=== PATIENT | male | born 1990 | race Caucasian/White ===

== ENCOUNTER 2021-12-18 20:36 | Emergency (ER) | payer BC, SELFPAY ==
[2021-12-18 20:48] VITALS: BP 123/64; PULSE 94; RESP 18; TEMP 36.7; O2SAT 97
--- NOTE | 2021-12-18 20:59 | PC.NURSE ---
Patient's mother Merary Buckley, her phone number is [phone]. Mother's boyfriend's is Anil, his phone number is [phone].
--- NOTE | 2021-12-18 21:04 | ED.PSYCH ---
HPI - Psych General Chief Complaint: Psychiatric Symptoms <Guillermo Jeong MD - Last Filed: 12/19/21 19:00> Stated Complaint: psych complaint <Guillermo Jeong MD - Last Filed: 12/19/21 19:00> Time Seen by Provider: 12/18/21 20:43 <Guillermo Jeong MD - Last Filed: 12/19/21 19:00> Source: patient and EMS <Guillermo Jeong MD - Last Filed: 12/19/21 19:00> History of Present Illness HPI Narrative: Patient presents for a well visit. Patient has a history of schizophrenia and bipolar he has not been on his meds for several months patient reports that his insurance does not cover it. He does live with his mom and they have noted him pacing around outside family reports he is stated suicidal intentions patient denies. <Guillermo Jeong MD - Last Filed: 12/19/21 19:00> Related Data Allergies/Adverse Reactions: Allergies Allergy/AdvReac Type Severity Reaction Status Date / Time No Known Allergies Allergy Verified 12/19/21 12:42 <Guillermo Jeong MD - Last Filed: 12/19/21 19:00> Review of Systems Review of Systems: CONSTITUTIONAL: Denies fever, chills, or sweats. EYES: Denies visual changes, redness, or discharge. ENT: Denies rhinorrhea, congestion, sore throat, or otalgia. CARDIOVASCULAR: Denies chest pain, palpitations, or edema. RESPIRATORY: Denies cough or dyspnea. GASTROINTESTINAL: Denies abdominal pain, nausea, vomiting, or diarrhea. GENITOURINARY: Denies dysuria or hematuria. SKIN: Denies rash or itching. MUSCULOSKELETAL: Denies back pain, joint pain, or myalgia. NEUROLOGIC: Denies headache, numbness, dizziness, or weakness. PSYCHIATRIC: Denies anxiety or depression. <Guillermo Jeong MD - Last Filed: 12/19/21 19:00> All systems reviewed & are unremarkable except as noted in HPI and below <Guillermo Jeong MD - Last Filed: 12/19/21 19:00> PMFSH Social History Social History: Social History Substance use type: amphetamines <Guillermo Jeong MD - Last Filed: 12/19/21 19:00> Exam Narrative: GENERAL: Well-appearing, well-nourished, and in no acute distress. HEAD: Normocephalic, atraumatic. EYES: PERRLA and EOMI. ENT: Nares clear, no rhinorrhea or epistaxis. Mucous membranes moist. NECK: Supple. No masses. No JVD CHEST: Clear to auscultation. No respiratory distress. No wheezes rales or rhonchi HEART: Regular rate and rhythm. No murmur heard. Normal peripheral pulses. ABDOMEN: Soft, nontender, nondistended, normal active bowel sounds. EXTREMITIES: Normal range of motion. No edema. SKIN: Warm, dry, no rash. NEURO: No focal deficits. No clonus. alert and oriented x3. PSYCH: Normal mood and affect. <Guillermo Jeong MD - Last Filed: 12/19/21 19:00> Course Reevaluation(s) Reevaluation #1: Patient test results returned UDS is positive for methamphetamines. Otherwise his work-up is unremarkable illicit substance likely contributing factor to his behavior. <Guillermo Jeong MD - Last Filed: 12/19/21 19:00> Date: 12/18/21 <Guillermo Jeong MD - Last Filed: 12/19/21 19:00> Time: 22:14 <Guillermo Jeong MD - Last Filed: 12/19/21 19:00> Reevaluation #2: Patient remains medically stable and appropriate for psychiatric admission <Guillermo Jeong MD - Last Filed: 12/19/21 19:00> Date: 12/19/21 <Guillermo Jeong MD - Last Filed: 12/19/21 19:00> Time: 01:15 <Guillermo Jeong MD - Last Filed: 12/19/21 19:00> Reevaluation #3: Patient remained clinically stable throughout the remainder of his ER stay. Patient was signed out to Dr. Pedroza pending accepting facility. <Guillermo Jeong MD - Last Filed: 12/19/21 19:00> Additional Reevaluation(s): Patient was not accepted to any inpatient psych facilities because they did not feel that he met the admission criteria. Patient continues to deny suicidal and homicidal ideation. Patient was reevaluated by [facility]
[2021-12-18 21:14] LABS: Basophils Absolute Auto 0.1 K/mm3 (0.0-0.1); Basophils Percent Auto 0.7 % (0.2-1.2); Eosinophils Absolute Auto 0.1 K/mm3 (0-0.3); Eosinophils Percent Auto 1.5 % (0-4.4); Hematocrit 41.3 % (42.0-52.0); Hemoglobin 13.8 g/dL (14.0-18.0); Immature Granulocyte Absolute 0.02 K/mm3 (0.00-0.031); Immature Granulocyte Percent A 0.2 % (0-0.5); Lymphocytes Absolute Auto 2.95 K/mm3 (0.9-3.2); Lymphocytes Percent Auto 31.3 % (18.3-44.2); Mean Corpuscular HGB Conc 33.4 g/dl (32-36); Mean Corpuscular Hemoglobin 28.7 pg (26-34); Mean Corpuscular Volume 85.9 fl (80-100); Mean Platelet Volume 10.4 fl (7.4-10.4); Monocytes Absolute Auto 1.2 K/mm3 (0.1-0.6); Monocytes Percent Auto 13.2 % (2.6-8.5); Neutrophils Percent Auto 53.1 % (45.5-73.1); Platelet Count Result 276 k/mm3 (150-375); Red Blood Count 4.81 M/mm3 (4.6-6.20); Red Cell Distribution Width 13.4 % (11.5-14.5); White Blood Count 9.4 K/mm3 (4.5-10.0)
[2021-12-18 21:22] LABS: Acetaminophen < 10 ug/mL (10-30); Chloride 110 mmol/L (98-107); Ethanol < 10 mg/dL (<10); Salicylate < 1.0 mg/dL (2-20)
[2021-12-18 21:24] LABS: Alanine Aminotransferase 15 U/L (6-50); Albumin Level 4.7 g/dL (3.5-5.1); Alkaline Phosphatase 92 U/L (38-126); Anion Gap 7 mmol/L (8-16); Aspartate Amino Transferase 33 U/L (17-59); Bilirubin,Total 0.7 mg/dL (0.2-1.3); Blood Urea Nitrogen 29 mg/dL (9-20); Calcium 8.7 mg/dL (8.4-10.2); Carbon Dioxide 21 mmol/L (22-30); Estimated CRCL calculation 94 ml/min; Estimated Glomerular Filt Rate > 60; Glucose 90 mg/dL (65-110); Potassium 3.7 mmol/L (3.4-5.0); Sodium 138 mmol/L (137-145)
[2021-12-18 21:47] LABS: Appearance Urine Clear (Clear); Bilirubin Urine 1+ (Negative); Blood Urine Negative (Negative); Color Urine Yellow (Yellow); Glucose Urine UA Negative (Negative); Ketones Urine Trace mg/dL (Negative); Leukocyte Esterase Ur Negative LEU/UL (Negative); Nitrate Urine Negative (Negative); Protein Urine Negative (Negative); Specific Grav Ur >= 1.030 (1.001-1.035); Urobilinogen Urine 0.2 mg/dL (<2.0); pH Urine 5.5 (5.0-9.0)
[2021-12-18 21:51] LABS: Mucus Urine Rare /lpf; RBC Urine 0-2 /hpf (0-2); Squamous Epithelial Cell Urine Rare /hpf (Few); WBC Urine 0-3 /hpf
[2021-12-18 21:52] LABS: Add Urine Microscopic? YES
[2021-12-18 22:04] LABS: Amphetamine Screen Urine Positive (Negative); Barbiturate Screen Urine Negative (Negative); Benzodiazepines Screen Urine Negative (Negative); Cannabinoid Screen Urine Positive (Negative); Cocaine Screen Urine Negative (Negative); Methadone Screen Urine Negative (Negative); Opiate Screen Urine Negative (Negative); Phencyclidine Screen Urine Negative (Negative)
--- NOTE | 2021-12-18 22:06 | PC.NURSE ---
Patient sitting in room talking to himself and laughing out loud. Patient denies SI or HI.
[2021-12-18 22:21] LABS: SARS-CoV-2 RNA PCR Negative
--- NOTE | 2021-12-18 23:30 | PC.NURSE ---
Pt remains in bed in ED 15 with sitter at bedside. Pt continues to alternate the following: laughing loudly for extended period without known reason, humping the ED bed; and mumbling nonsensically to himself. Awaiting crisis food preparation supervisor arrival.
--- NOTE | 2021-12-19 00:18 | PC.NURSE ---
Pt continues to yell and curse randomly. Asked to lower volume/stop cursing without change in behavior. No evidence of learning. Sitter remains at bedside.
--- NOTE | 2021-12-19 01:57 | PC.NURSE ---
Pt remains scoring NO RISK d/t DENYING SI/HI. Pt appears calm, currently resting in bed c eyes closed and light dimmed. Per EDP Jean-Paul, OK to remove sitter at this time. ED RN Alma Delia notified. Crisis allergist/pediatric pulmonologist reports she is currently working on placement for pt at this time.
[2021-12-19 06:10] VITALS: BP 137/89; PULSE 67; RESP 18; TEMP 36.5; O2SAT 100
--- NOTE | 2021-12-19 07:15 | PC.NURSE ---
BSSR TO [facility]
--- NOTE | 2021-12-19 11:08 | PC.NURSE ---
CHARTS FAXED TO [facility] PER [facility] REQUEST
--- NOTE | 2021-12-19 12:20 | PC.NURSE ---
[facility] returned call stating that they feel this patient does not meet criteria for inpatient treatment
--- NOTE | 2021-12-19 13:29 | PC.NURSE ---
spoke with chava crystal toinform her of [facility] rejection of patient
--- NOTE | 2021-12-19 15:54 | PC.NURSE ---
spoke with Enrico at [facility] stating that Dr Pedroza would like patient reevaluated as patient is denying HI/Si at this time
[2021-12-19 17:22] VITALS: BP 138/72; PULSE 80; RESP 20; O2SAT 99
== END 2021-12-19 17:24 | disposition home or self-care (01) ==
PROVIDERS: Emergency Provider Emergency Medicine
DX: F15.129 Other stimulant abuse with intoxication, unspecified (principal); F20.9 Schizophrenia, unspecified; F31.9 Bipolar disorder, unspecified; Z20.822 Contact with and (suspected) exposure to COVID-19
CPT/HCPCS: 36415; 80053; 80307; 81001; 84443; 85025; 99284; C9803; U0003; U0005

== ENCOUNTER 2022-06-04 16:58 | Emergency (ER) | payer BC, SELFPAY ==
--- NOTE | ~2022-06-04 | XR_ITS ---
EXAMINATION: XR chest 2V Exam Date/Time: 06/04/2022 17:30 [facility] HISTORY: chest pain SOB Comparison: None available. RESULT: Lines, tubes, and devices: None. Lungs and pleura: Clear. Cardiomediastinal silhouette: Normal. Other: No acute osseous or upper abdominal finding. IMPRESSION: No acute cardiopulmonary process. Reviewed, dictated and finalized at location [facility]. [facility]
--- NOTE | 2022-06-04 17:18 | ECG_ITS ---
Measurements Intervals [place] Rate: 81 P: 83 WA: 145 QRS: 101 QRSD: 98 T: 74 QT: 368 QTc: 428 Interpretive Statements SINUS RHYTHM RIGHT AXIS DEVIATION POSSIBLE RIGHT ATRIAL ENLARGEMENT INCOMPLETE RIGHT BUNDLE BRANCH BLOCK DELAYED PRECORDIAL R/S TRANSITION BASELINE ARTIFACT- I, II, AVR, AVL, V6 BORDERLINE ECG NO PREVIOUS ECG AVAILABLE FOR COMPARISON Electronically Signed On 06-05-2022 6:38:30 MARKETING ASSISTANT by Zeeshan Griffiths D.O.
[2022-06-04 17:23] VITALS: BP 117/46; PULSE 89; RESP 20; TEMP 36.8; O2SAT 100
[2022-06-04 18:56] LABS: Troponin I < 0.012 ng/mL (0.000-0.034)
[2022-06-04 19:10] LABS: Influenza A QL RT-PCR Negative (Negative); Influenza B QL RT-PCR Negative (Negative); RSV RNA, RT-PCR Negative (Negative); SARS-CoV-2 RNA PCR Negative
[2022-06-04 19:25] VITALS: BP 129/80; PULSE 86; RESP 15; O2SAT 100
--- NOTE | 2022-06-04 19:27 | ED.CHESTPAIN ---
HPI - Chest Pain General Chief Complaint: Chest Pain Stated Complaint: chest pain, rib pain - whole body hurts Time Seen by Provider: 06/04/22 17:18 History of Present Illness HPI narrative: 32-year-old male presents to the emergency room for evaluation of left lateral rib pain and left elbow pain. Patient states that he supposedly broke out a window with his left elbow because he was mad. Patient states the local law enforcement have been looking for him, but he came to the emergency room for evaluation instead. Patient recalls a distant history of left lateral rib cage pain sustained from a football injury that occurred in [facility] 10 years ago. Patient believes that he has a broken rib that is punctured his spleen. Related Data Allergies Allergy/AdvReac Type Severity Reaction Status Date / Time No Known Allergies Allergy Verified 06/04/22 17:00 [facility] Social History Social History Substance use type: amphetamines Exam Narrative: GENERAL: Unkempt HEAD: Normocephalic, atraumatic. EYES: Conjunctivae normal, PERRLA and EOMI. CHEST: Clear to auscultation. No respiratory distress. No wheezes rales or rhonchi. left lateral chest wall tenderness HEART: Regular rate and rhythm. No murmur heard. Normal peripheral pulses. ABDOMEN: Soft, nontender, nondistended, normal active bowel sounds. BACK: No cervical/thoracic/lumbar tenderness, step-offs, bony abnormality; FROM EXTREMITIES: Normal range of motion. No edema. No clubbing or cyanosis SKIN: Warm, dry, no rash. No noted wounds NEURO: No focal deficits. Alert and oriented x3. MAEW. CN's II-XI intact bilaterally, normal gait PSYCH: Cooperative. Tangential. Course Vital Signs Vital signs: Vital Signs Temperature 36.8 C 06/04/22 17: Pulse Rate 89 06/04/22 17:23 Respiratory Rate 20 06/04/22 17:23 Blood Pressure 117/46 L 06/04/22 17:23 Pulse Oximetry 100 06/04/22 17:23 Temperature 36.8 C 06/04/22 17:23 Pulse Rate 89 06/04/22 17:23 Respiratory Rate 20 06/04/22 17:23 Blood Pressure 117/46 L 06/04/22 17:23 Pulse Oximetry 100 06/04/22 17:23 MDM - Chest Pain Lab Data Labs: Lab Results 06/04/22 06/04/22 Range/Units 18:18 18:18 Troponin I < 0.012 (0.000-0.034) ng/mL Influenza A (RT-PCR) Negative (Negative) Influenza B (RT-PCR) Negative (Negative) RSV (RT-PCR) Negative (Negative) SARS-CoV-2 RNA (RT-PCR) Negative Discharge Plan Discharge Clinical Impression: Chest wall pain Patient Disposition: Home, Self-Care Condition: Stable Instructions: Antibiotic Form, Chest Wall Pain (ED) Follow-up/Referrals: PHYSICIAN,MD SENIOR RESEARCH SCIENTIST [Primary Care Provider] - Time of Disposition: 19:27
== END 2022-06-04 19:49 | disposition home or self-care (01) ==
LOC: ANHED 19:35
PROVIDERS: Emergency Provider Nurse Practitioner Family
DX: R07.89 Other chest pain (principal); Z20.822 Contact with and (suspected) exposure to COVID-19; I45.10 Unspecified right bundle-branch block; R94.31 Abnormal electrocardiogram [ECG] [EKG]
CPT/HCPCS: 36415; 71046; 84484; 87637; 93005; 99284